=== PATIENT | male | born 1965 | race Caucasian/White ===

== ENCOUNTER 2025-07-25 21:37 | Inpatient (IN) | payer MEDICAID ==
[~2025-07-25] VITALS: Ht 162.6 cm; Wt 43.1 kg
[2025-07-25 21:22] VITALS: PULSE 104; RESP 18; O2SAT 99
[2025-07-25 21:40] VITALS: O2SAT 100
[2025-07-25] MEDS ORDERED: VANCOMYCIN 1000MG/250ML 250 ML IV SCH (22:15)
[2025-07-25 22:28] LABS: BASOPHILS % 0.3 % (0.0-2.0); EOSINOPHILS % 0.4 % (0.0-5.0); HEMATOCRIT. 29.8 % (42.0-52.0); HEMOGLOBIN. 9.4 g/dL (14.0-18.0); LYMPHOCYTES % 7.1 % (20.0-50.0); MEAN PLATELET VOLUME 8.5 fl (7.4-10.4); MONOCYTES % 5.7 % (2.0-8.0); NEUTROPHILS % 86.5 % (40.0-76.0); PLATELET 162 x1000/uL (130-400); RED BLOOD CELL COUNT 3.01 mill/uL (4.7-6.1); RED CELL DISTRIBUTION WIDTH 17.2 % (11.6-14.6)
[2025-07-25] MEDS: VANCOMYCIN 1G PREMIX 200 ML IV SCH (22:34)
[2025-07-25 22:44] LABS: CREATININE 0.3 mg/dL (0.6-1.3); UREA NITROGEN BLOOD 12 mg/dL (9-23)
[2025-07-25 22:45] LABS: ASPARTATE AMINOTRANSFERASE 72 IU/L (<34)
[2025-07-25] MEDS ORDERED: CLONIDINE 0.1MG TABLET PO PRN (22:45)
[2025-07-25] MEDS ORDERED: ONDANSETRON HCL 4MG/2ML INJ IV PRN (22:45)
[2025-07-25] MEDS ORDERED: MAGNESIUM/ALUMINUM HYDROXIDE/SIMETHICONE 30ML UDC PO PRN (22:45)
[2025-07-25] MEDS ORDERED: ZOLPIDEM TARTRATE 5MG TABLET PO PRN (22:45)
[2025-07-25 22:46] LABS: BILIRUBIN DIRECT < 0.1 mg/dL (<=3.0); BILIRUBIN TOTAL 0.3 mg/dL (0.1-1.0); PROTEIN TOTAL 7.7 g/dL (6.0-8.3)
[2025-07-25 22:58] LABS: INR 1.2
[2025-07-25] MEDS ORDERED: NALOXONE HCL 0.4MG/ML VIAL IV PRN (23:00)
[2025-07-25 23:07] VITALS: PULSE 108; RESP 20; O2SAT 100
[2025-07-25 23:26] LABS: CLARITY URINE TURBID (CLEAR); COLOR URINE YELLOW (YELLOW); GLUCOSE URINE NEGATIVE (NEGATIVE); KETONES URINE NEGATIVE (NEGATIVE); LEUKOCYTE ESTERASE URINE 3+ (NEGATIVE); NITRITE URINE NEGATIVE (NEGATIVE); OCCULT BLOOD URINE 2+ (NEGATIVE); PH URINE 7.0 (4.5-8.0); PROTEIN URINE 1+ (NEGATIVE); SPECIFIC GRAVITY URINE 1.012 (1.005-1.030); UROBILINOGEN URINE 1.0 E.U./dL (0.2-1.0)
[2025-07-26] VITALS (23 sets, daily range): BP systolic 105–150; BP diastolic 48–129; PULSE 82–112; RESP 20–38; TEMP 36.4–36.7; O2SAT 86–100
[2025-07-26 00:08] LABS: WBC URINE TNTC /hpf (0-2)
[2025-07-26 00:09] LABS: BACTERIA URINE 4+; SQUAMOUS EPITHELIAL CELL URINE NONE SEEN /lpf (RARE/1+)
[2025-07-26] MEDS: PIPERACILLIN/TAZO 3.375G/50ML 50 ML IV SCH (05:39)
[2025-07-26] MEDS: SODIUM CHLORIDE 0.9% 1,000 ML IV SCH (05:44)
[2025-07-26] MEDS ORDERED: PIPERACILLIN/TAZO 3.375G/50ML 50 ML IV SCH (06:00)
[2025-07-26 08:07] LABS: UREA NITROGEN BLOOD 12 mg/dL (9-23)
[2025-07-26 08:12] LABS: CREATININE 0.2 mg/dL (0.6-1.3)
[2025-07-26] MEDS: PANTOPRAZOLE SODIUM 40 MG/VIAL IV SCH (08:23)
[2025-07-26] MEDS: ENOXAPARIN 40MG/0.4ML SYR SUBCUT SCH (08:24)
[2025-07-26] MEDS ORDERED: VANCOMYCIN 1GM/200ML PMX (BAXTER) IV SCH (09:00)
[2025-07-26] MEDS: VANCOMYCIN 750MG/150ML (BAXTER) IV SCH (09:45)
[2025-07-26 13:35] LABS: HEMOGLOBIN. 8.3 g/dL (14.0-18.0); MEAN PLATELET VOLUME 7.5 fl (7.4-10.4); PLATELET 516 x1000/uL (130-400); RED BLOOD CELL COUNT 2.69 mill/uL (4.7-6.1); RED CELL DISTRIBUTION WIDTH 16.5 % (11.6-14.6)
[2025-07-26 13:41] LABS: HEMATOCRIT. 25.5 % (42.0-52.0)
[2025-07-26 14:29] LABS: BAND% 5.0 % (1.0-6.0); LYMPHOCYTES % MANUAL 4.0 % (20.0-50.0); MONOCYTES % MANUAL 4.0 % (2.0-8.0); NEUTROPHILS % MANUAL 87.0 % (45.0-75.0); PLATELET ESTIMATE INCREASED
[2025-07-26 15:40] LABS: INFLUENZA TYPE A Presumptive Negative (Pres. Neg.); INFLUENZA TYPE B Presumptive Negative (Pres. Neg.); RESPIRATORY SYNCYTIAL VIRUS Not Detected (Not Detectd)
[2025-07-26 17:28] LABS: BG BASE EXCESS 2.0 mmol/L (-2.0-3.0); BG CARBOXYHEMOGLOBIN 1.6 % (0.5-1.5); BG DEOXYHEMOGLOBIN 14.0 % (0.0-5.0); BG FRACTION INSPIRED OXYGEN 35; BG HCO3 ACT 25.9 mmol/L (21.0-28.0); BG METHEMOGLOBIN 0.4 % (0.5-1.5); BG OXYGEN SATURATION 85.7 % (94.0-98.0); BG OXYHEMOGLOBIN 84.0 % (94.0-98.0); BG PCO2 37.3 mmHg (35.0-48.0); BG PEEP (cmH2O) 5.0 cmH2O; BG PH 7.459 (7.350-7.450); BG PO2 50.0 mmHg (83.0-108.0); BG SAMPLE SITE LEFT BRACHIAL; BG TIDAL VOLUME(mL) 400.0 mL; BG TOTAL HEMOGLOBIN 8.3 g/dL (13.5-17.5); BG VENT MODE VENT - AC; BG VENT RATE 12.0 set
[2025-07-26] MEDS: IPRATROPIUM/ALBUTEROL 0.5-3(2.5)MG/3ML NEB HHN SCH (20:06)
[2025-07-27] VITALS (20 sets, daily range): BP systolic 113–142; BP diastolic 78–94; PULSE 79–105; RESP 18–37; TEMP 36.2–36.8; O2SAT 97–100
[2025-07-27 07:56] LABS: HEMATOCRIT. 23.6 % (42.0-52.0); HEMOGLOBIN. 7.9 g/dL (14.0-18.0); MEAN PLATELET VOLUME 7.6 fl (7.4-10.4); PLATELET 552 x1000/uL (130-400); RED BLOOD CELL COUNT 2.51 mill/uL (4.7-6.1); RED CELL DISTRIBUTION WIDTH 16.8 % (11.6-14.6)
[2025-07-27 08:08] LABS: CREATININE 0.2 mg/dL (0.6-1.3); UREA NITROGEN BLOOD 16 mg/dL (9-23)
[2025-07-27 13:30] LABS: BAND% 14.0 % (1.0-6.0); LYMPHOCYTES % MANUAL 3.0 % (20.0-50.0); MONOCYTES % MANUAL 3.0 % (2.0-8.0); NEUTROPHILS % MANUAL 80.0 % (45.0-75.0)
[2025-07-27 13:31] LABS: PLATELET ESTIMATE INCREASED
[2025-07-27] MEDS: VANCOMYCIN 500 MG in DEXT 5% WATER 100 ML IV SCH (22:17)
[2025-07-28] VITALS (18 sets, daily range): BP systolic 111–150; BP diastolic 62–99; PULSE 80–115; RESP 20–36; TEMP 36.6–36.9; O2SAT 74–100
[2025-07-28 08:03] LABS: HEMATOCRIT. 24.1 % (42.0-52.0); HEMOGLOBIN. 8.3 g/dL (14.0-18.0); MEAN PLATELET VOLUME 7.3 fl (7.4-10.4); PLATELET 516 x1000/uL (130-400); RED BLOOD CELL COUNT 2.60 mill/uL (4.7-6.1); RED CELL DISTRIBUTION WIDTH 16.7 % (11.6-14.6)
[2025-07-28 08:23] LABS: CREATININE 0.2 mg/dL (0.6-1.3); UREA NITROGEN BLOOD 10 mg/dL (9-23)
[2025-07-28] MEDS ORDERED: TOPUD PO (08:37)
[2025-07-28] MEDS ORDERED: CEFE1PIG3 IV (08:37)
[2025-07-28] MEDS ORDERED: IPRA3AMP9 HHN (08:37)
[2025-07-28] MEDS ORDERED: HYDR-4001 PO (08:37)
[2025-07-28] MEDS: HYDROCODONE/ACETAMINOPHEN 5/325MG TABLET PO PRN (10:18)
[2025-07-28] MEDS: GUAIFENESIN 200MG/10ML SUGAR FREE UDC PO SCH (13:09)
[2025-07-28 13:30] LABS: BG BASE EXCESS 4.4 mmol/L (-2.0-3.0); BG CARBOXYHEMOGLOBIN 0.3 % (0.5-1.5); BG DEOXYHEMOGLOBIN 0.3 % (0.0-5.0); BG FRACTION INSPIRED OXYGEN 100; BG HCO3 ACT 29.0 mmol/L (21.0-28.0); BG METHEMOGLOBIN 0.3 % (0.5-1.5); BG OXYGEN SATURATION 99.7 % (94.0-98.0); BG OXYHEMOGLOBIN 99.1 % (94.0-98.0); BG PCO2 43.6 mmHg (35.0-48.0); BG PEEP (cmH2O) 8.0 cmH2O; BG PH 7.441 (7.350-7.450); BG PO2 462.2 mmHg (83.0-108.0); BG SAMPLE SITE RIGHT RADIAL; BG TIDAL VOLUME(mL) 400.0 mL; BG TOTAL HEMOGLOBIN 8.8 g/dL (13.5-17.5); BG VENT MODE VENT - PRVC; BG VENT RATE 12.0 set
[2025-07-28 17:33] LABS: LYMPHOCYTES % MANUAL 7.0 % (20.0-50.0); MONOCYTES % MANUAL 8.0 % (2.0-8.0); NEUTROPHILS % MANUAL 85.0 % (45.0-75.0); PLATELET ESTIMATE INCREASED
[2025-07-29] VITALS (21 sets, daily range): BP systolic 98–151; BP diastolic 76–109; PULSE 79–106; RESP 17–41; TEMP 36.6–36.9; O2SAT 96–100
[2025-07-29 07:43] LABS: CREATININE 0.2 mg/dL (0.6-1.3); UREA NITROGEN BLOOD 7 mg/dL (9-23)
[2025-07-29] MEDS ORDERED: LORAZEPAM 2MG/ML UD SYRINGE IV PRN (21:34)
[2025-07-29] MEDS ORDERED: HYDROCODONE/ACETAMINOPHEN 10/325MG TABLET PO PRN (21:45)
[2025-07-29] MEDS: MEROPENEM 1G/100ML 100 ML IV SCH (22:00)
[2025-07-29] MEDS: FUROSEMIDE 20MG/2ML VIAL IVP NR (23:17)
[2025-07-30] VITALS (24 sets, daily range): BP systolic 109–161; BP diastolic 66–95; PULSE 80–106; RESP 17–29; TEMP 36.6–37.3; O2SAT 96–100
[2025-07-30] MEDS: VANCOMYCIN 500 MG in DEXT 5% WATER 100 ML IV SCH ×2 (02:00→16:11)
[2025-07-30] MEDS ORDERED: HYDROCODONE/ACETAMINOPHEN 5/325MG TABLET PO PRN (03:15)
[2025-07-30 07:06] LABS: UREA NITROGEN BLOOD 10 mg/dL (9-23)
[2025-07-30 07:22] LABS: CREATININE 0.3 mg/dL (0.6-1.3)
[2025-07-30] MEDS: FUROSEMIDE 40MG/4ML VIAL IVP SCH (10:19)
[2025-07-31] VITALS (21 sets, daily range): BP systolic 129–162; BP diastolic 82–101; PULSE 81–111; RESP 19–37; TEMP 36.4–36.9; O2SAT 95–100
[2025-07-31 04:12] LABS: UREA NITROGEN BLOOD 11 mg/dL (9-23)
[2025-07-31 04:15] LABS: CREATININE 0.2 mg/dL (0.6-1.3)
[2025-07-31] MEDS ORDERED: VANCOMYCIN 750MG/150ML (BAXTER) IV SCH (18:00)
[2025-08-01] VITALS (24 sets, daily range): BP systolic 132–173; BP diastolic 83–102; PULSE 83–117; RESP 0–27; TEMP 36.2–36.7; O2SAT 98–100
[2025-08-01 06:52] LABS: CREATININE 0.2 mg/dL (0.6-1.3); UREA NITROGEN BLOOD 11 mg/dL (9-23)
[2025-08-01] MEDS: SODIUM HYPOCHLORITE 0.125% 473ML SOLUTION TOP SCH (09:00)
[2025-08-01] MEDS: ENOXAPARIN 30MG/0.3ML SYR SUBCUT SCH (10:10)
[2025-08-01] MEDS: IPRATROPIUM/ALBUTEROL 0.5-3(2.5)MG/3ML NEB HHN PRN (14:58)
[2025-08-02] VITALS (22 sets, daily range): BP systolic 133–157; BP diastolic 86–120; PULSE 84–129; RESP 16–37; TEMP 36.3–37.1; O2SAT 98–100
[2025-08-02] MEDS: ACETAMINOPHEN 325MG TABLET PO PRN (11:29)
[2025-08-03] VITALS (23 sets, daily range): BP systolic 127–151; BP diastolic 81–96; PULSE 81–107; RESP 16–32; TEMP 36.4–36.9; O2SAT 98–100
[2025-08-03 06:35] LABS: SODIUM URINE RANDOM 36 mEq/L
[2025-08-03 08:04] LABS: HEMATOCRIT. 27.6 % (42.0-52.0); HEMOGLOBIN. 9.5 g/dL (14.0-18.0); MEAN PLATELET VOLUME 8.3 fl (7.4-10.4); PLATELET 449 x1000/uL (130-400); RED BLOOD CELL COUNT 2.93 mill/uL (4.7-6.1); RED CELL DISTRIBUTION WIDTH 17.7 % (11.6-14.6)
[2025-08-03 08:17] LABS: UREA NITROGEN BLOOD 15 mg/dL (9-23)
[2025-08-03 08:21] LABS: T4 FREE 1.25 ng/dL (0.89-1.76)
[2025-08-03 09:22] LABS: CREATININE 0.3 mg/dL (0.6-1.3)
[2025-08-03 11:11] LABS: OSMOLALITY URINE 404 mOsm/kg (500-850)
[2025-08-03 17:04] LABS: EOSINOPHILS % MANUAL 2.0 % (0.0-5.0); LYMPHOCYTES % MANUAL 5.0 % (20.0-50.0); MONOCYTES % MANUAL 8.0 % (2.0-8.0); NEUTROPHILS % MANUAL 85.0 % (45.0-75.0); PLATELET ESTIMATE INCREASED
[2025-08-04] VITALS (23 sets, daily range): BP systolic 119–143; BP diastolic 76–90; PULSE 90–126; RESP 16–25; TEMP 36.4–37.1; O2SAT 95–100
[2025-08-04] MEDS: IPRATROPIUM/ALBUTEROL 0.5-3(2.5)MG/3ML NEB HHN SCH (11:46)
[2025-08-05] VITALS (20 sets, daily range): BP systolic 116–154; BP diastolic 74–92; PULSE 92–130; RESP 17–38; TEMP 36.1–36.8; O2SAT 98–100
[2025-08-05 05:46] LABS: HEMATOCRIT. 29.3 % (42.0-52.0); HEMOGLOBIN. 9.7 g/dL (14.0-18.0); MEAN PLATELET VOLUME 8.1 fl (7.4-10.4); PLATELET 390 x1000/uL (130-400); RED BLOOD CELL COUNT 3.07 mill/uL (4.7-6.1); RED CELL DISTRIBUTION WIDTH 17.4 % (11.6-14.6)
[2025-08-05 05:48] LABS: CREATININE 0.3 mg/dL (0.6-1.3); UREA NITROGEN BLOOD 21 mg/dL (9-23)
[2025-08-05 20:36] LABS: BAND% 3.0 % (1.0-6.0); LYMPHOCYTES % MANUAL 4.0 % (20.0-50.0); MONOCYTES % MANUAL 4.0 % (2.0-8.0); NEUTROPHILS % MANUAL 89.0 % (45.0-75.0); PLATELET ESTIMATE NORMAL
[2025-08-06] VITALS (22 sets, daily range): BP systolic 107–141; BP diastolic 71–101; PULSE 87–107; RESP 16–30; TEMP 36.6–37.1; O2SAT 90–100
[2025-08-06 07:12] LABS: BASOPHILS % 0.5 % (0.0-2.0); EOSINOPHILS % 0.2 % (0.0-5.0); HEMATOCRIT. 26.8 % (42.0-52.0); HEMOGLOBIN. 9.0 g/dL (14.0-18.0); LYMPHOCYTES % 8.3 % (20.0-50.0); MEAN PLATELET VOLUME 8.3 fl (7.4-10.4); MONOCYTES % 4.7 % (2.0-8.0); NEUTROPHILS % 86.3 % (40.0-76.0); PLATELET 352 x1000/uL (130-400); RED BLOOD CELL COUNT 2.80 mill/uL (4.7-6.1); RED CELL DISTRIBUTION WIDTH 17.0 % (11.6-14.6)
[2025-08-07] VITALS (22 sets, daily range): BP systolic 106–136; BP diastolic 71–87; PULSE 91–125; RESP 15–30; TEMP 36.3–36.8; O2SAT 97–100
[2025-08-07 10:07] LABS: BG BASE EXCESS 13.7 mmol/L (-2.0-3.0); BG CARBOXYHEMOGLOBIN 0.9 % (0.5-1.5); BG DEOXYHEMOGLOBIN 9.4 % (0.0-5.0); BG FRACTION INSPIRED OXYGEN 30; BG HCO3 ACT 38.0 mmol/L (21.0-28.0); BG METHEMOGLOBIN 0.0 % (0.5-1.5); BG OXYGEN SATURATION 90.5 % (94.0-98.0); BG OXYHEMOGLOBIN 89.7 % (94.0-98.0); BG PCO2 46.8 mmHg (35.0-48.0); BG PEEP (cmH2O) 5.0 cmH2O; BG PH 7.527 (7.350-7.450); BG PO2 56.7 mmHg (83.0-108.0); BG SAMPLE SITE RIGHT RADIAL; BG TIDAL VOLUME(mL) 500.0 mL; BG TOTAL HEMOGLOBIN 9.8 g/dL (13.5-17.5); BG TOTAL RESPIRATORY RATE 26 b/min; BG VENT MODE VENT - AC; BG VENT RATE 16.0 set
[2025-08-08] VITALS (23 sets, daily range): BP systolic 116–148; BP diastolic 74–92; PULSE 96–128; RESP 16–30; TEMP 36.5–37.2; O2SAT 96–100
[2025-08-09] VITALS (20 sets, daily range): BP systolic 120–148; BP diastolic 84–95; PULSE 91–126; RESP 16–36; TEMP 36.4–37; O2SAT 90–100
[2025-08-09] MEDS ORDERED: IPRATROPIUM/ALBUTEROL 0.5-3(2.5)MG/3ML NEB HHN PRN (11:15)
[2025-08-09] MEDS: DILTIAZEM HCL 60MG TABLET PO SCH (12:35)
[2025-08-09] MEDS: IPRATROPIUM/ALBUTEROL 0.5-3(2.5)MG/3ML NEB HHN SCH (23:52)
[2025-08-10] VITALS (21 sets, daily range): BP systolic 124–151; BP diastolic 78–97; PULSE 92–116; RESP 16–30; TEMP 36.5–36.9; O2SAT 98–100
[2025-08-11] VITALS (19 sets, daily range): BP systolic 132–154; BP diastolic 81–100; PULSE 93–122; RESP 17–27; TEMP 36.3–36.6; O2SAT 100
[2025-08-11 09:52] LABS: BG BASE EXCESS 13.2 mmol/L (-2.0-3.0); BG CARBOXYHEMOGLOBIN 0.6 % (0.5-1.5); BG DEOXYHEMOGLOBIN 0.4 % (0.0-5.0); BG FRACTION INSPIRED OXYGEN 50; BG HCO3 ACT 36.7 mmol/L (21.0-28.0); BG METHEMOGLOBIN 0.1 % (0.5-1.5); BG OXYGEN SATURATION 99.6 % (94.0-98.0); BG OXYHEMOGLOBIN 98.9 % (94.0-98.0); BG PCO2 42.1 mmHg (35.0-48.0); BG PEEP (cmH2O) 5.0 cmH2O; BG PH 7.558 (7.350-7.450); BG PO2 164.9 mmHg (83.0-108.0); BG SAMPLE SITE RIGHT RADIAL; BG TIDAL VOLUME(mL) 450.0 mL; BG TOTAL HEMOGLOBIN 9.4 g/dL (13.5-17.5); BG VENT MODE VENT - AC; BG VENT RATE 16.0 set
[2025-08-12] VITALS (22 sets, daily range): BP systolic 131–141; BP diastolic 73–91; PULSE 80–105; RESP 15–33; TEMP 36.3–36.6; O2SAT 99–100
[2025-08-13] VITALS (20 sets, daily range): BP systolic 126–150; BP diastolic 74–90; PULSE 58–115; RESP 16–40; TEMP 36.4–36.9; O2SAT 99–100
[2025-08-13 13:15] LABS: BG BASE EXCESS 12.7 mmol/L (-2.0-3.0); BG CARBOXYHEMOGLOBIN 0.3 % (0.5-1.5); BG DEOXYHEMOGLOBIN 1.3 % (0.0-5.0); BG FRACTION INSPIRED OXYGEN 40; BG HCO3 ACT 36.3 mmol/L (21.0-28.0); BG METHEMOGLOBIN 0.3 % (0.5-1.5); BG OXYGEN SATURATION 98.7 % (94.0-98.0); BG OXYHEMOGLOBIN 98.1 % (94.0-98.0); BG PCO2 42.5 mmHg (35.0-48.0); BG PEEP (cmH2O) 5.0 cmH2O; BG PH 7.549 (7.350-7.450); BG PO2 126.3 mmHg (83.0-108.0); BG SAMPLE SITE RIGHT RADIAL; BG TIDAL VOLUME(mL) 450.0 mL; BG TOTAL HEMOGLOBIN 9.3 g/dL (13.5-17.5); BG VENT MODE VENT - AC; BG VENT RATE 16.0 set
[2025-08-14] VITALS (22 sets, daily range): BP systolic 126–165; BP diastolic 76–103; PULSE 93–112; RESP 16–34; TEMP 36.1–36.8; O2SAT 98–100
[2025-08-15] VITALS (23 sets, daily range): BP systolic 127–139; BP diastolic 73–89; PULSE 91–114; RESP 20–41; TEMP 36.6–37.8; O2SAT 99–100
[2025-08-15] MEDS: ENOXAPARIN 30MG/0.3ML SYR SUBCUT SCH (10:08)
[2025-08-15 13:27] LABS: CREATININE 0.3 mg/dL (0.6-1.3); UREA NITROGEN BLOOD 18 mg/dL (9-23)
[2025-08-15 13:33] LABS: BASOPHILS % 0.2 % (0.0-2.0); EOSINOPHILS % 0.3 % (0.0-5.0); HEMATOCRIT. 23.3 % (42.0-52.0); HEMOGLOBIN. 7.5 g/dL (14.0-18.0); LYMPHOCYTES % 7.1 % (20.0-50.0); MONOCYTES % 2.6 % (2.0-8.0); NEUTROPHILS % 89.8 % (40.0-76.0); RED BLOOD CELL COUNT 2.44 mill/uL (4.7-6.1); RED CELL DISTRIBUTION WIDTH 15.3 % (11.6-14.6)
[2025-08-15 14:10] LABS: PLATELET 246 x1000/uL (130-400)
[2025-08-15] MEDS: KCL 20MEQ/100ML PREMIX 100 ML IV NR (15:35)
[2025-08-16] VITALS (18 sets, daily range): BP systolic 116–133; BP diastolic 70–81; PULSE 95–109; RESP 17–33; TEMP 36.1–37.3; O2SAT 99–100
[2025-08-16 05:49] LABS: CREATININE 0.3 mg/dL (0.6-1.3); UREA NITROGEN BLOOD 16 mg/dL (9-23)
[2025-08-16 06:02] LABS: HEMATOCRIT. 27.7 % (42.0-52.0); HEMOGLOBIN. 9.0 g/dL (14.0-18.0); MEAN PLATELET VOLUME 9.9 fl (7.4-10.4); PLATELET 201 x1000/uL (130-400); RED BLOOD CELL COUNT 2.92 mill/uL (4.7-6.1); RED CELL DISTRIBUTION WIDTH 15.1 % (11.6-14.6)
[2025-08-16 17:46] LABS: LYMPHOCYTES % MANUAL 8.0 % (20.0-50.0); MONOCYTES % MANUAL 4.0 % (2.0-8.0); NEUTROPHILS % MANUAL 88.0 % (45.0-75.0); PLATELET ESTIMATE NORMAL
[2025-08-17] VITALS (22 sets, daily range): BP systolic 124–140; BP diastolic 67–77; PULSE 98–110; RESP 20–34; TEMP 36.6–37.7; O2SAT 94–100
[2025-08-18] VITALS (16 sets, daily range): BP systolic 122–146; BP diastolic 63–87; PULSE 96–120; RESP 22–38; TEMP 36.4–36.9; O2SAT 91–99
[2025-08-18] MEDS: HYDROCODONE/ACETAMINOPHEN 5/325MG TABLET PO PRN (23:21)
[2025-08-19] VITALS (18 sets, daily range): BP systolic 122–137; BP diastolic 62–75; PULSE 94–114; RESP 18–40; TEMP 36.4–37.1; O2SAT 95–100
[2025-08-20] VITALS (24 sets, daily range): BP systolic 114–143; BP diastolic 59–77; PULSE 97–117; RESP 18–50; TEMP 36.9–37.1; O2SAT 93–100
[2025-08-21] VITALS (22 sets, daily range): BP systolic 120–142; BP diastolic 63–84; PULSE 95–114; RESP 13–45; TEMP 36.6–37.3; O2SAT 85–100
[2025-08-21] MEDS ORDERED: NALOXONE HCL 0.4MG/ML VIAL IV PRN (14:30)
[2025-08-21] MEDS: IPRATROPIUM/ALBUTEROL 0.5-3(2.5)MG/3ML NEB HHN SCH (22:16)
[2025-08-21] MEDS: ACETYLCYSTEINE 200MG/ML 20% VIAL 4ML INH SCH (22:16)
[2025-08-22] VITALS (21 sets, daily range): BP systolic 115–135; BP diastolic 61–77; PULSE 98–117; RESP 18–43; TEMP 36.6–37.2; O2SAT 95–100
[2025-08-22 07:03] LABS: HEMATOCRIT. 21.7 % (42.0-52.0); HEMOGLOBIN. 7.3 g/dL (14.0-18.0); MEAN PLATELET VOLUME 7.7 fl (7.4-10.4); PLATELET 357 x1000/uL (130-400); RED BLOOD CELL COUNT 2.37 mill/uL (4.7-6.1); RED CELL DISTRIBUTION WIDTH 14.5 % (11.6-14.6)
[2025-08-22 07:50] LABS: UREA NITROGEN BLOOD 11 mg/dL (9-23)
[2025-08-22 07:57] LABS: CREATININE 0.2 mg/dL (0.6-1.3)
[2025-08-22 09:52] LABS: BG BASE EXCESS 8.5 mmol/L (-2.0-3.0); BG CARBOXYHEMOGLOBIN 0.8 % (0.5-1.5); BG DEOXYHEMOGLOBIN 1.0 % (0.0-5.0); BG FRACTION INSPIRED OXYGEN 60; BG HCO3 ACT 32.9 mmol/L (21.0-28.0); BG METHEMOGLOBIN 0.3 % (0.5-1.5); BG OXYGEN SATURATION 99.0 % (94.0-98.0); BG OXYHEMOGLOBIN 97.9 % (94.0-98.0); BG PCO2 45.7 mmHg (35.0-48.0); BG PEEP (cmH2O) 5.0 cmH2O; BG PH 7.475 (7.350-7.450); BG PO2 128.9 mmHg (83.0-108.0); BG SAMPLE SITE LEFT BRACHIAL; BG TIDAL VOLUME(mL) 400.0 mL; BG TOTAL HEMOGLOBIN 7.8 g/dL (13.5-17.5); BG VENT MODE VENT - AC; BG VENT RATE 16.0 set
[2025-08-23] VITALS (24 sets, daily range): BP systolic 129–158; BP diastolic 66–88; PULSE 100–128; RESP 19–43; TEMP 36.7–37.2; O2SAT 95–100
[2025-08-23 07:10] LABS: HEMATOCRIT. 22.4 % (42.0-52.0); HEMOGLOBIN. 7.4 g/dL (14.0-18.0); MEAN PLATELET VOLUME 7.9 fl (7.4-10.4); PLATELET 378 x1000/uL (130-400); RED BLOOD CELL COUNT 2.42 mill/uL (4.7-6.1); RED CELL DISTRIBUTION WIDTH 14.6 % (11.6-14.6)
[2025-08-23 07:48] LABS: CREATININE 0.2 mg/dL (0.6-1.3); UREA NITROGEN BLOOD 10 mg/dL (9-23)
[2025-08-23 17:32] LABS: LYMPHOCYTES % MANUAL 4.0 % (20.0-50.0); MONOCYTES % MANUAL 7.0 % (2.0-8.0); NEUTROPHILS % MANUAL 89.0 % (45.0-75.0); PLATELET ESTIMATE NORMAL
[2025-08-23 19:41] LABS: LYMPHOCYTES % MANUAL 3.0 % (20.0-50.0); MONOCYTES % MANUAL 7.0 % (2.0-8.0); NEUTROPHILS % MANUAL 90.0 % (45.0-75.0)
[2025-08-23 19:42] LABS: PLATELET ESTIMATE NORMAL
[2025-08-24] VITALS (24 sets, daily range): BP systolic 133–154; BP diastolic 74–90; PULSE 107–130; RESP 17–32; TEMP 36.6–37.8; O2SAT 93–98
[2025-08-24 07:10] LABS: CREATININE 0.2 mg/dL (0.6-1.3); UREA NITROGEN BLOOD 14 mg/dL (9-23)
[2025-08-24 07:32] LABS: HEMATOCRIT. 23.3 % (42.0-52.0); HEMOGLOBIN. 7.7 g/dL (14.0-18.0); MEAN PLATELET VOLUME 7.6 fl (7.4-10.4); PLATELET 389 x1000/uL (130-400); RED BLOOD CELL COUNT 2.54 mill/uL (4.7-6.1); RED CELL DISTRIBUTION WIDTH 14.3 % (11.6-14.6)
[2025-08-24] MEDS: ACETAMINOPHEN 325MG TABLET PO PRN (09:40)
[2025-08-24] MEDS: FAMOTIDINE 20MG TABLET GT SCH (09:40)
[2025-08-24] MEDS: DILTIAZEM HCL 60MG TABLET PO NR (10:44)
[2025-08-24 16:31] LABS: BAND% 2.0 % (1.0-6.0); LYMPHOCYTES % MANUAL 3.0 % (20.0-50.0); MONOCYTES % MANUAL 2.0 % (2.0-8.0); NEUTROPHILS % MANUAL 93.0 % (45.0-75.0); PLATELET ESTIMATE NORMAL
[2025-08-24] MEDS: MEROPENEM 1G/100ML 100 ML IV SCH (21:59)
[2025-08-25] VITALS (24 sets, daily range): BP systolic 123–147; BP diastolic 71–83; PULSE 96–123; RESP 24–34; TEMP 36.2–36.7; O2SAT 90–97
[2025-08-25 10:38] LABS: BG BASE EXCESS 7.5 mmol/L (-2.0-3.0); BG CARBOXYHEMOGLOBIN 0.6 % (0.5-1.5); BG DEOXYHEMOGLOBIN 5.7 % (0.0-5.0); BG FRACTION INSPIRED OXYGEN 50; BG HCO3 ACT 31.3 mmol/L (21.0-28.0); BG METHEMOGLOBIN 0.3 % (0.5-1.5); BG OXYGEN SATURATION 94.2 % (94.0-98.0); BG OXYHEMOGLOBIN 93.4 % (94.0-98.0); BG PCO2 41.2 mmHg (35.0-48.0); BG PEEP (cmH2O) 5.0 cmH2O; BG PH 7.499 (7.350-7.450); BG PO2 70.5 mmHg (83.0-108.0); BG SAMPLE SITE RIGHT RADIAL; BG TIDAL VOLUME(mL) 400.0 mL; BG TOTAL HEMOGLOBIN 8.0 g/dL (13.5-17.5); BG TOTAL RESPIRATORY RATE 29 b/min; BG VENT MODE VENT - AC; BG VENT RATE 16.0 set
[2025-08-26] VITALS (22 sets, daily range): BP systolic 133–149; BP diastolic 77–88; PULSE 107–122; RESP 26–39; TEMP 36.3–36.9; O2SAT 89–99
[2025-08-26] MEDS: IPRATROPIUM/ALBUTEROL 0.5-3(2.5)MG/3ML NEB HHN PRN (21:41)
[2025-08-27] VITALS (25 sets, daily range): BP systolic 137–154; BP diastolic 68–85; PULSE 100–126; RESP 22–40; TEMP 36.4–36.6; O2SAT 92–100
[2025-08-27 12:10] LABS: BG BASE EXCESS 10.3 mmol/L (-2.0-3.0); BG CARBOXYHEMOGLOBIN 0.3 % (0.5-1.5); BG DEOXYHEMOGLOBIN 6.7 % (0.0-5.0); BG FRACTION INSPIRED OXYGEN 70; BG HCO3 ACT 33.7 mmol/L (21.0-28.0); BG METHEMOGLOBIN 0.3 % (0.5-1.5); BG OXYGEN SATURATION 93.3 % (94.0-98.0); BG OXYHEMOGLOBIN 92.7 % (94.0-98.0); BG PCO2 40.0 mmHg (35.0-48.0); BG PEEP (cmH2O) 5.0 cmH2O; BG PH 7.543 (7.350-7.450); BG PO2 63.3 mmHg (83.0-108.0); BG SAMPLE SITE LEFT RADIAL; BG TIDAL VOLUME(mL) 400.0 mL; BG TOTAL HEMOGLOBIN 8.5 g/dL (13.5-17.5); BG VENT MODE VENT - AC; BG VENT RATE 16.0 set
[2025-08-27] MEDS: PREDNISONE 20MG TABLET PO SCH (12:43)
[2025-08-28] VITALS (23 sets, daily range): BP systolic 130–154; BP diastolic 63–81; PULSE 98–121; RESP 23–35; TEMP 36.4–37.2; O2SAT 93–100
[2025-08-28] MEDS: DILTIAZEM HCL 90MG TABLET PO SCH (00:02)
[2025-08-28 06:22] LABS: HEMATOCRIT. 24.0 % (42.0-52.0); HEMOGLOBIN. 7.9 g/dL (14.0-18.0); MEAN PLATELET VOLUME 8.2 fl (7.4-10.4); PLATELET 441 x1000/uL (130-400); RED BLOOD CELL COUNT 2.62 mill/uL (4.7-6.1); RED CELL DISTRIBUTION WIDTH 14.9 % (11.6-14.6)
[2025-08-28 08:39] LABS: CREATININE 0.2 mg/dL (0.6-1.3); UREA NITROGEN BLOOD 14 mg/dL (9-23)
[2025-08-28 10:21] LABS: BAND% 24.0 % (1.0-6.0); LYMPHOCYTES % MANUAL 1.0 % (20.0-50.0); MONOCYTES % MANUAL 2.0 % (2.0-8.0); NEUTROPHILS % MANUAL 73.0 % (45.0-75.0); PLATELET ESTIMATE SLIGHTLY INCREASED
[2025-08-28] MEDS: IPRATROPIUM/ALBUTEROL 0.5-3(2.5)MG/3ML NEB HHN SCH (20:16)
[2025-08-29] VITALS (21 sets, daily range): BP systolic 119–138; BP diastolic 67–87; PULSE 90–104; RESP 19–33; TEMP 36.4–36.9; O2SAT 90–100
[2025-08-29] MEDS: LEVOTHYROXINE SODIUM 25MCG TABLET PO SCH (09:13)
[2025-08-29] MEDS: PREDNISONE 20MG TABLET PO SCH (09:18)
[2025-08-30] VITALS (24 sets, daily range): BP systolic 118–161; BP diastolic 68–86; PULSE 76–104; RESP 16–27; TEMP 36.2–37; O2SAT 92–100
[2025-08-30 11:01] LABS: HEMATOCRIT. 24.4 % (42.0-52.0); HEMOGLOBIN. 7.9 g/dL (14.0-18.0); MEAN PLATELET VOLUME 8.0 fl (7.4-10.4); PLATELET 423 x1000/uL (130-400); RED BLOOD CELL COUNT 2.68 mill/uL (4.7-6.1); RED CELL DISTRIBUTION WIDTH 14.9 % (11.6-14.6)
[2025-08-30 11:36] LABS: CREATININE 0.2 mg/dL (0.6-1.3); UREA NITROGEN BLOOD 18 mg/dL (9-23)
[2025-08-30 19:16] LABS: EOSINOPHILS % MANUAL 3.0 % (0.0-5.0); LYMPHOCYTES % MANUAL 8.0 % (20.0-50.0); MONOCYTES % MANUAL 7.0 % (2.0-8.0); NEUTROPHILS % MANUAL 82.0 % (45.0-75.0); PLATELET ESTIMATE NORMAL
[2025-08-31] VITALS (24 sets, daily range): BP systolic 125–157; BP diastolic 68–83; PULSE 84–106; RESP 15–31; TEMP 36.3–36.6; O2SAT 80–100
[2025-08-31 05:50] LABS: CREATININE 0.2 mg/dL (0.6-1.3); UREA NITROGEN BLOOD 18 mg/dL (9-23)
[2025-08-31 06:26] LABS: HEMATOCRIT. 23.7 % (42.0-52.0); HEMOGLOBIN. 8.1 g/dL (14.0-18.0); MEAN PLATELET VOLUME 8.0 fl (7.4-10.4); PLATELET 477 x1000/uL (130-400); RED BLOOD CELL COUNT 2.63 mill/uL (4.7-6.1); RED CELL DISTRIBUTION WIDTH 15.4 % (11.6-14.6)
[2025-08-31 22:30] LABS: LYMPHOCYTES % MANUAL 10.0 % (20.0-50.0); MONOCYTES % MANUAL 7.0 % (2.0-8.0); NEUTROPHILS % MANUAL 83.0 % (45.0-75.0); PLATELET ESTIMATE INCREASED
[2025-09-01] VITALS (21 sets, daily range): BP systolic 125–150; BP diastolic 73–88; PULSE 89–110; RESP 14–24; TEMP 36.3–36.7; O2SAT 92–100
[2025-09-01] MEDS ORDERED: ACETAMINOPHEN 325MG TABLET PO PRN (21:00)
[2025-09-01] MEDS: ENOXAPARIN 30MG/0.3ML SYR SUBCUT SCH (23:11)
[2025-09-01] MEDS: ACETYLCYSTEINE 200MG/ML 20% VIAL 4ML INH SCH (23:57)
[2025-09-02] VITALS (24 sets, daily range): BP systolic 118–148; BP diastolic 74–86; PULSE 95–116; RESP 16–32; TEMP 36.4–36.9; O2SAT 91–100
[2025-09-02] MEDS: IPRATROPIUM/ALBUTEROL 0.5-3(2.5)MG/3ML NEB HHN SCH (21:31)
[2025-09-03] MEDS ORDERED: PREDNISONE 20MG TABLET PO SCH (09:00)
== END 2025-09-02 22:05 | DRG 710 ==
LOC: ER 21:37 → 5WST 22:25 → EDBEDREQ 22:31 → EDBEDREQTM 22:31 → EDBEDREQSVC 22:31 → 5EST 07-26 01:16
PROVIDERS: ADMIT Internal Medicine; ATTEND Internal Medicine
PROC: 5A1955Z Respiratory Ventilation, Greater than 96 Consecutive Hours (ICD-10-PCS; principal; 2025-07-25)
PROC: 0KBH0ZZ Excision of Right Thorax Muscle, Open Approach (ICD-10-PCS; 2025-07-28)
PROC: 0KBP0ZZ Excision of Left Hip Muscle, Open Approach (ICD-10-PCS; 2025-07-28)
PROC: 0KBN0ZZ Excision of Right Hip Muscle, Open Approach (ICD-10-PCS; 2025-07-28)
PROC: 0KBW0ZZ Excision of Left Foot Muscle, Open Approach (ICD-10-PCS; 2025-07-28)
PROC: 0KBV0ZZ Excision of Right Foot Muscle, Open Approach (ICD-10-PCS; 2025-07-28)
DX: A41.51 Sepsis due to Escherichia coli [E. coli] (principal); J95.851 Ventilator associated pneumonia; J15.1 Pneumonia due to Pseudomonas; Z99.11 Dependence on respirator [ventilator] status; J96.21 Acute and chronic respiratory failure with hypoxia; G93.40 Encephalopathy, unspecified; R13.10 Dysphagia, unspecified; J44.0 Chronic obstructive pulmonary disease with (acute) lower respiratory infection; L89.154 Pressure ulcer of sacral region, stage 4; L89.214 Pressure ulcer of right hip, stage 4; L89.894 Pressure ulcer of other site, stage 4; L89.524 Pressure ulcer of left ankle, stage 4; L89.514 Pressure ulcer of right ankle, stage 4; L89.324 Pressure ulcer of left buttock, stage 4; L89.314 Pressure ulcer of right buttock, stage 4; L89.224 Pressure ulcer of left hip, stage 4; N39.0 Urinary tract infection, site not specified; B95.2 Enterococcus as the cause of diseases classified elsewhere; Z93.0 Tracheostomy status; D64.9 Anemia, unspecified; I12.9 Hypertensive chronic kidney disease with stage 1 through stage 4 chronic kidney disease, or unspecified chronic kidney disease; E46 Unspecified protein-calorie malnutrition; Z20.822 Contact with and (suspected) exposure to COVID-19; E87.3 Alkalosis; E87.1 Hypo-osmolality and hyponatremia; N18.1 Chronic kidney disease, stage 1; R94.6 Abnormal results of thyroid function studies; J44.1 Chronic obstructive pulmonary disease with (acute) exacerbation; J98.11 Atelectasis; Z16.12 Extended spectrum beta lactamase (ESBL) resistance; Z16.21 Resistance to vancomycin; Z68.1 Body mass index [BMI] 19.9 or less, adult; Z93.1 Gastrostomy status; Z74.01 Bed confinement status
CPT/HCPCS: 31720; 36415; 36600; 71045; 80048; 80076; 80202; 81003; 82375; 82533; 82805; 83605; 83930; 83935; 84145; 84300; 84439; 84443; 85025; 87070; 87077; 87186; 87420; 87426; 87804; 93005; 93306; 93970; 94002; 94003; 94070; 94640; 94664; 98960; 99285; A4606; J1650; J1938; J2185; J2470; J2543; J3373; J3480; J7030; J7060; J7512; J7608